=== PATIENT | female | born 1985 | race Caucasian/White ===

== ENCOUNTER 2016-10-06 10:47 | Emergency (ER) | payer BC ==
[2016-10-06 12:04] LABS: Urine Bilirubin Negative (NEGATIVE); Urine Blood 25 /ul (NEGATIVE); Urine Ketone Negative (NEGATIVE); Urine Nitrite Negative (NEGATIVE); Urine Protein Negative (NEGATIVE); Urine Urobilinogen Normal (NORMAL)
[2016-10-06 12:21] LABS: Urine Appearance Clear; Urine Bacteria TRACE; Urine Color Yellow; Urine WBC TRACE /hpf (0-5)
[2016-10-06 12:22] LABS: Hematocrit 41.2 % (37.0-47.0); Hemoglobin 13.7 gm/dL (12.5-16.0); Mean Cell Volume 92.8 fl (78-100); Mean Corpuscular Hemoglobin 30.9 pg (27-31); Mean Corpuscular Hgb Conc 33.3 g/dl (32-36); Mean Platelet Volume 9.8 fl (6.0-9.5); Neutrophil # 5.6 K/mm3 (1.3-6.0); Neutrophil % 61.8 % (42-75.0); Platelet Count 337 K/mm3 (150-450); Red Blood Count 4.44 M/mm3 (4.2-5.4); Red Cell Distribution Width 11.9 % (11.5-14.0); White Blood Count 9.1 K/mm3 (4.0-10.5)
[2016-10-06 12:38] LABS: ALT 31 U/L (19-67); AST 17 U/L (0-48); Albumin * 4.1 gm/dl (3.4-5.0); Alkaline Phosphatase * 84 U/L (50-170); Anion Gap 13.6 mmol/L (6.8-13.8); BUN/Creatinine Ratio 8.5 (9.0-21.6); Bilirubin, Total 0.3 mg/dL (0.0-1.1); Blood Urea Nitrogen 5 mg/dL (3-23); Ca. Corrected For Albumin 9.2 mg/dL (8.4-10.2); Calcium * 9.6 mg/dL (7.9-10.9); Carbon Dioxide 27.3 mmol/L (24-32.6); Chloride 103 mmol/L (97-106); Glucose * 92 mg/dL (70-110); Potassium 3.9 mmol/L (3.4-4.6); Sodium 140 mmol/L (132-142); Total Protein 7.9 gm/dL (6.2-8.2)
[2016-10-06 12:47] VITALS: BP 123/83
--- NOTE | 2016-10-06 13:08 | ERNOTE ---
Abdominal HPI - Narrative Date of Service: 10/06/16 - General Chief Complaint: Abdominal Pain Time Seen by Provider: 10/06/16 11:33 Source: patient, RN notes reviewed Exam Limitations: no limitations - Immun/Allergies/Home Medications Immunizatons: IMMUNIZATION HX Immunizations Up to Date Yes History of Influenza Vaccine Yes Hx Pneumococcal Vaccination No Allergies/Adverse Reactions: Allergies No Known Drug Allergies Allergy (Unverified 11/22/15 14:19) Home Medications: HOME MEDICATIONS Cyclobenzaprine HCl [Flexeril] 10 mg PO TID PRN 10/06/16 [Last Taken Unknown] Levothyroxine Sodium [Synthroid] 75 mcg PO DAILY 10/06/16 [Last Taken Unknown] Methylphenidate HCl [Ritalin LA] 10 mg PO 10/06/16 [Last Taken Unknown] - History of Present Illness Narrative: Josie is a 31-year-old female ambulatory to the emergency department for lower abdominal pain and right-sided low back pain that began last evening. She initially presented to the walk-in clinic where she had a normal urinalysis and a negative urine test, but was sent here for further evaluation. She has not had to take anything for pain today. She denies any other associated symptoms. Date (Duration): 10/05/16 Timing: getting worse Quality: cramping Activities at Onset: none Associated Symptoms: Present: back pain. Absent: headache, chest pain, neck pain, diaphoresis, diarrhea-gross blood, diarrhea-mucous, fatigue, fever/chills , heartburn, nausea, vomiting, loss of appetite, shortness of breath, swelling/ mass in abdomen, syncope, weakness Prior Abdominal Problems: Present: none Prior Treatment: Absent: recently seen, currently on antibiotics Review of Systems - Review of Systems Constitutional: Present: See HPI EYE: Present: no symptoms reported ENT: Present: no symptoms reported Respiratory: Absent: shortness of breath, cough Cardiology: Present: See HPI Gastrointestinal/Abdominal: Present: See HPI Genitourinary: Absent: frequency, dysuria, hematuria Musculoskeletal: Present: See HPI Skin: Present: no symptoms reported Neurological: Present: See HPI Endocrine: Present: no symptoms reported Hematologic/Lymphatic: Present: no symptoms reported Psych: Present: no symptoms reported - Patient's Past Medical History Patient History - Medical: Depression, Hypothyroidism, Obesity, Other - Narcolepsy, Lichen sclerosis Patient History - Cardiac/Respiratory: No pertinent hx Patient History - Cancer: No Hx of Cancer Patient History - Surgical Procedures: T & A LMP (Calendar): 09/19/16 - Social History Living Situations: home Smoking Status: Current every day smoker Cigarettes Packs Per Day: 0.5 Alcohol Use: rarely Drug Use: none Physical Exam - Physical Exam General Appearance: Present: wd/wn, alert, no apparent distress Neck: Present: normal inspection, nontender, supple Respiratory: Present: no respiratory distress, normal breath sounds, no accessory muscle use, lungs clear Cardiovascular/Chest: Present: regular rate, rhythm, no murmur Gastrointestinal/Abdominal: Present: normal bowel sounds, nondistended, soft, no organomegaly, tenderness - Lower abdomen. Absent: rebound, McBurney sign, mass Back Exam: Present: no CVA tenderness, no vertebral tenderness, other - mild tenderness in right lateral lumbar region Neurological Exam: Present: alert, oriented, normal mood/affect Skin Exam: Present: normal color, warm/dry ED Progress - Results and Orders Patient's Lab Results:: I have reviewed the patient's lab results. - Vital Signs Patient's Vital Signs:: I have reviewed the patient's vital signs. Vital Signs: Vital Signs 10/06/16 10/06/16 10:59 12:46 Temperature 36.3 C L Pulse Rate 77 74 Respiratory 18 14 Rate Blood Pressure 122/92 123/83 O2 Sat by Pulse 99 Oximetry - X-Ray X-Ray #1 X-Ray: abdomen Interpretation: Reviewed by me X-ray Comments: TWO VIEW ABDOMEN / ABDOMINAL SERIES COMPARISON: None Supine and erect AP projections of the abdomen and pelvis were obtained. There are small amounts of gas identified within the bowel. I do not see evidence for gaseous dilatation of the bowel, air-fluid levels , or free air. There is a small to moderate amount of stool within the right colon and transverse colon. The visualized lung bases appear clear. I am not convinced of radiodensities overlying the kidneys. IMPRESSION: 1. NONSPECIFIC BOWEL GAS PATTERN Electronically signed by Jorge Harrison M.D.. - Progress/Reassessment Chief Complaint: Abdominal Pain Progress:: Unchanged Progress Note-Subjective: 10/06/16 13:06 Small amount of blood present on UA - discussed possibility of ureteral colic but as patient has not required any medication for pain and does not appear overly uncomfortable, the likelihood of her having a large obstructing stone is minimal so will defer CT scan for now. Abdominal xrays ordered. Plan - Plan Plan: Reviewed xray results with patient - discussed pain is likely d/t retained stool in the ascending colon. Discussed f/u for further eval if pain does not resolve with treatment of constipation. Departure - Departure Clinical Impression: Abdominal pain in female, Constipation, acute Disposition: Home self-care Condition: Good Instructions: Constipation, Adult, [id number], Form - Excuse from Work, School, or Physical Activity Additional Instructions: Repeat Milk of magnesia if no improvement by this time tomorrow Increase fluid intake Return for worsening symptoms Referrals: Yin Bobo, OIL PROGRAM COMPLIANCE SPECIALIST [Primary Care Provider] -
[2016-10-06] MEDS ORDERED: MAGNESIUM HYDROXIDE 30 ML UDC PO ONE (13:58)
== END 2016-10-06 14:19 | disposition home or self-care (01) ==
LOC: ER 10:47
DX: K59.00 Constipation, unspecified (principal); F17.210 Nicotine dependence, cigarettes, uncomplicated; E03.9 Hypothyroidism, unspecified

== ENCOUNTER 2017-07-20 00:09 | Inpatient (IN) | payer BC, OTHER ==
[~2017-07-20 00:09] MED LIST: BUTORPHANOL TARTRATE 2 MG/ML VIAL IV PRN; RINGER'S SOLUTION,LACTATED 1,000 ML IV PRN
[2017-07-20] MEDS: RINGER'S SOLUTION,LACTATED 1,000 ML IV PRN ×2 (00:59→10:41)
[2017-07-20] MEDS ORDERED: OXYTOCIN/DEXTROSE 5%-WATER 30 UNITS/500 ML BAG IV ONE ×2 (01:00→15:02)
[2017-07-20] MEDS ORDERED: INSULIN REGULAR HUMAN REC 100 UNITS in NORMAL SALINE 100 ML IV PRN (01:00)
[2017-07-20] MEDS ORDERED: LIDOCAINE HCL 50 ML VIAL PERI PRN (01:00)
[2017-07-20] MEDS ORDERED: RINGER'S SOLUTION,LACTATED 1,000 ML IV ONE (01:00)
[2017-07-20] MEDS ORDERED: ONDANSETRON HCL/PF 2 MG/ML VIAL IV PRN ×2 (01:00→10:24)
[2017-07-20] MEDS ORDERED: PENICILLIN G POTASSIUM 5 MILLIONUNT in DEXTROSE 5 % IN WATER 100 ML IV ONE ×2 (01:00)
[2017-07-20] MEDS: OXYTOCIN/DEXTROSE 5%-WATER 30 UNITS/500 ML BAG IV ONE ×2 (02:34→06:33)
[2017-07-20] MEDS: PENICILLIN G POTASSIUM 2.5 MILLIONUNT in DEXTROSE 5 % IN WATER 100 ML IV SCH ×6 (06:29→13:26)
[2017-07-20] MEDS ORDERED: BUPIVACAINE HCL/0.9 % NACL/PF 250 ML EP PRN (10:24)
[2017-07-20] MEDS ORDERED: NALOXONE HCL 1 MG/1 ML SYRG IV PRN (10:24)
[2017-07-20] MEDS ORDERED: BUPIVACAINE HCL/PF 30 ML VIAL EP SCH (10:30)
--- NOTE | 2017-07-20 11:02 | OR ---
Anesthesia Procedure Note - Anesthesia Procedure Note Date of Service: 07/20/17 Narrative: Vital Signs - Last Taken Temp 36.8 C 07/20/17 10:32 Pulse 84 07/20/17 10:32 Resp 18 07/20/17 10:32 BP 143/87 07/20/17 10:32 Pulse Ox 99 07/20/17 10:32 07/20/17 11:02 ANESTHESIA PROCEDURE NOTE Date of Procedure: 07/20/2017. Time of procedure: 1035. Performed by: Pernell Martinez CRNA Business Process Lead: None. Preprocedure diagnosis: Active labor. Post procedure diagnosis: Same. Procedure: Insertion of labor epidural. Indications: The patient is a 32 -year-old female in active labor requesting labor epidural for pain management. Findings: See below. Details of the procedure: The patient was placed in a sitting position. DuraPrep as well as Betadine swabs X3 was applied to the patient's back. Patient was then draped in a sterile fashion. Lidocaine 1% was infiltrated to the skin and subcutaneous tissues at the level of the L3-4 interspace. The epidural space was identified using a 18-gauge Tuohy needle with loss-of- resistance technique. Epidural catheter was inserted to a depth of 12 centimeters at skin. Negative test dose was elicited using 3 mL of 1.5% preservative-free lidocaine plus epinephrine 1 200,000. The epidural catheter was then taped and secured in place. A loading dose of 8 mL of 0.25% preservative-free bupivacaine was administered to the epidural catheter after negative aspiration for blood and CSF. EBL: Minimal. Fluids: N/A. Specimen: N/A. Post procedure condition: The patient tolerated the procedure well. No complications were noted. Thank you for this consultation. Pernell Martinez CRNA
--- NOTE | 2017-07-20 11:58 | PN ---
Progess Note - Interim Narrative: 07/20/17 9:00 Pt starting to feel her contractions. FHTs: reassuring SVE: 4-5/70/-3, AROM-minimal clear fluid [place]: q3 min BS: 93 A/P: Continue IOL with pitocin GBS neg Anticipate
[2017-07-20] MEDS ORDERED: GLYCERIN/WITCH HAZEL LEAF 40 APPL BOX TP PRN (15:02)
[2017-07-20] MEDS ORDERED: SENNOSIDES 8.6 MG TABLET PO PRN (15:02)
[2017-07-20] MEDS ORDERED: HYDROCORTISONE 30 APPL TUBE TP PRN (15:02)
[2017-07-20] MEDS ORDERED: BISACODYL 10 MG SUPP.RECT RC PRN (15:02)
[2017-07-20] MEDS ORDERED: BENZOCAINE/MENTHOL 81 SPRAY CAN TP PRN (15:02)
--- NOTE | 2017-07-20 15:06 | OR ---
Operative Report - Dictated Report Narrative: Spontaneous Vaginal Delivery Viable female with APGARS of 8 at 1 minute and 9 at 5 minutes. She delivered at 1446. Presentation was [place]. The anterior and posterior shoulder delivered without difficulty followed by the remainder of the baby. A cord was wrapped around her ankle. The baby was placed on the maternal abdomen and dried and stimulated. The cord was clamped and cut after approximately 60 seconds. Weight: 8 pounds 1.6 ounces or 3676 g Placenta was delivered spontaneously and intact. Bilateral periclitoral stretch abrasions and first-degree midline vaginal laceration was hemostatic without repair. Estimated blood loss: 100 ml Mother and baby tolerated delivery well. History for Definition: * The number of deliveries resulting in a live the patient experienced prior to current hospitalization * The previous delivery of live twins or any live multiple gestation is considered one live event. *If primagravida or nulliparous is documented select zero for the number of previous live births. Live Events: 2
[2017-07-20] MEDS: DOCUSATE SODIUM 100 MG CAPSULE PO SCH (22:47)
[2017-07-21] MEDS: oxyCODONE HCL/ACETAMINOPHEN 1 TAB TABLET PO PRN ×3 (01:28→17:52)
[2017-07-21] MEDS: IBUPROFEN 800 MG TABLET PO PRN ×3 (01:28→17:52)
[2017-07-21] MEDS: DOCUSATE SODIUM 100 MG CAPSULE PO SCH ×2 (08:12→21:24)
--- NOTE | 2017-07-21 11:48 | PN ---
Progess Note - Interim Narrative: 07/21/17 11:47 progress note Subjective: The patient is doing well. She is ambulating, voiding, tolerating by mouth. She has minimal pain and moderate lochia. Objective: General: No acute distress Abdomen: Soft, nontender, fundus is firm just below the umbilicus Extremities: minimal edema, nontender to palpation Assessment and plan: day 1 Feeding: Bottle Pain: Controlled with by mouth medication Gestational diabetes: Plan to check fasting and one-hour postprandials Routine care.
[2017-07-22] MEDS: oxyCODONE HCL/ACETAMINOPHEN 1 TAB TABLET PO PRN ×4 (00:15→15:11)
[2017-07-22] MEDS: IBUPROFEN 800 MG TABLET PO PRN ×2 (05:06→11:07)
[2017-07-22 08:32] VITALS: BP 131/69
--- NOTE | 2017-07-22 09:49 | PN ---
Progess Note - Interim Narrative: 07/22/17 09:49 progress note Subjective: The patient is doing well. She is ambulating, voiding, tolerating by mouth. She has minimal pain and moderate lochia. Objective: General: No acute distress Abdomen: Soft, nontender, fundus is firm just below the umbilicus Extremities: minimal edema, nontender to palpation Assessment and plan: day 2 Feeding: Bottle Pain: Controlled with by mouth medication Gestational diabetes: fasting and one-hour postprandial WNL Routine care.
[2017-07-22] MEDS ORDERED: MEDROXYPROGESTERONE ACET 150 MG/ML SYRG IM ONE (10:30)
[2017-07-22] MEDS: DOCUSATE SODIUM 100 MG CAPSULE PO SCH (10:41)
== END 2017-07-22 15:20 | disposition home or self-care (01) | DRG 775 ==
LOC: MS 00:09 → OB 00:09
PROVIDERS: ADMIT Obstetrics & Gynecology Gynecologic Oncology; ATTEND Obstetrics & Gynecology Gynecologic Oncology
PROC: 10E0XZZ Delivery of Products of Conception, External Approach (ICD-10-PCS; principal; 2017-07-20)
PROC: 3E0P3VZ Introduction of Hormone into Female Reproductive, Percutaneous Approach (ICD-10-PCS; 2017-07-20)
PROC: 10907ZC Drainage of Amniotic Fluid, Therapeutic from Products of Conception, Via Natural or Artificial Opening (ICD-10-PCS; 2017-07-20)
PROC: 4A1HXCZ Monitoring of Products of Conception, Cardiac Rate, External Approach (ICD-10-PCS; 2017-07-20)
PROC: 00HU33Z Insertion of Infusion Device into Spinal Canal, Percutaneous Approach (ICD-10-PCS; 2017-07-20)
DX: O69.81X0 Labor and delivery complicated by cord around neck, without compression, not applicable or unspecified (principal); O24.425 Gestational diabetes mellitus in childbirth, controlled by oral hypoglycemic drugs; O70.0 First degree perineal laceration during delivery; E03.9 Hypothyroidism, unspecified; Z3A.39 39 weeks gestation of pregnancy; Z37.0 Single live birth

== ENCOUNTER 2017-07-25 13:49 | Emergency (ER) | payer BC, OTHER ==
[2017-07-25] MEDS ORDERED: PHENYLEPHRINE HCL RC ONE ×2 (14:11→14:14)
--- NOTE | 2017-07-25 14:23 | ERNOTE ---
Medical Problem HPI - Narrative Date of Service: 07/25/17 - General Chief Complaint: General Assessment Time Seen by Provider: 07/25/17 14:04 Source: patient Exam Limitations: no limitations - Immun/Allergies/Home Medications Immunizations: IMMUNIZATION HX Immunizations Up to Date Yes History of Influenza Vaccine Yes Hx Pneumococcal Vaccination No Allergies/Adverse Reactions: Allergies No Known Drug Allergies Allergy (Verified 07/25/17 13:56) Home Medications: HOME MEDICATIONS Cyclobenzaprine HCl [Flexeril] 10 mg PO TID PRN 10/06/16 [Last Taken Unknown] Levothyroxine Sodium [Synthroid] 75 mcg PO DAILY 10/06/16 [Last Taken Unknown] Ibuprofen [Motrin] 800 mg PO Q6H PRN tablet 07/22/17 [Last Taken Unknown] Docusate Sodium [Colace] 100 mg PO DAILY #30 cap 07/25/17 [Last Taken Unknown] HYDROcodone/ACETAMINOPHEN [Hydrocodon-Acetaminophen 5-325] 1 each PO TID PRN # 20 tablet 07/25/17 [Last Taken Unknown] - History of Present History Narrative: 32-year-old female presents to the emergency room for which she states her hemorrhoids. Patient states she had a vaginal delivery last Sunday or hemorrhoids have flared up over the last 24 hours. Patient states she has tried tucks pads and sitz baths but has not gotten relief. Timing: constant Severity: moderate Modifying Factors - (Worsens): Present: movement Review of Systems - Review of Systems Constitutional: Present: See HPI EYE: Present: no symptoms reported ENT: Present: no symptoms reported Respiratory: Present: no symptoms reported Cardiology: Present: no symptoms reported Gastrointestinal/Abdominal: Present: See HPI Genitourinary: Present: no symptoms reported Musculoskeletal: Present: no symptoms reported Skin: Present: no symptoms reported Neurological: Present: no symptoms reported Endocrine: Present: no symptoms reported Hematologic/Lymphatic: Present: no symptoms reported Psych: Present: no symptoms reported All Other Systems: All systems neg except as marked - Narrative Narrative: Had a vaginal delivery on Sunday of a full-term baby. - Patient's Past Medical History Patient History - Medical: Depression, Hypothyroidism, Obesity, Other Patient History - Cardiac/Respiratory: No pertinent hx Patient History - Cancer: No Hx of Cancer Patient History - Surgical Procedures: T & A Patient History - Other: None - Social History Living Situations: home Psych History: Hx of Depression - Immunizations Immunizations Up to Date: Yes Hx Pneumococcal Vaccination: No History of Influenza Vaccine: Yes Physical Exam - Physical Exam Narrative: Patient has an engorged hemorrhoid at the 2 o'clock position. It is soft and reducible. second hemorrhoid 9 o'clock position is darker in color and firmer. Area is very tender. General Appearance: Present: wd/wn, alert, no apparent distress Head Exam: Present: normal inspection, no evidence of injury Eye Exam: Normal inspection: bilateral Ears, Nose, Throat: Present: normal ENT inspection, normal pharynx Neck: Present: normal inspection, nontender Respiratory: Present: no respiratory distress, normal breath sounds, no accessory muscle use, chest nontender, lungs clear Cardiovascular/Chest: Present: regular rate, rhythm, no murmur, normal peripheral pulses Gastrointestinal/Abdominal: Present: normal bowel sounds, nontender, nondistended, no organomegaly Rectal Exam: Present: tenderness, hemorrhoids Back Exam: Present: normal inspection, normal range of motion, no CVA tenderness , no vertebral tenderness Extremity Exam: Present: normal inspection, non-tender, normal range of motion, no edema Neurological Exam: Present: alert, oriented, normal mood/affect, no motor/ sensory deficits Skin Exam: Present: normal color, warm/dry, other - see narrative Lymphatic Exam: Present: no adenopathy ED Progress - Vital Signs Patient's Vital Signs:: I have reviewed the patient's vital signs. Vital Signs: Vital Signs 07/25/17 13:51 Temperature 36.0 C L Pulse Rate 88 Respiratory 12 Rate Blood Pressure 143/85 O2 Sat by Pulse 98 Oximetry - Progress/Reassessment Chief Complaint: General Assessment Progress:: Improved Procedures Lateral Perineum Anesthesia: 1% Lidocaine I & D Prep: betadine prep Blade Size: 16G needle Findings and Actions: other - moderate clot removed Complications: Pt marshal procedure well Comments:: procedure performed by ED attending Mary Castle Plan - Plan Plan: Patient should continue her sitz baths tux pads and stool softeners. She'll follow up with her primary care SURVEY INTERVIEWER in the next 2-3 days. Departure Clinical Impression: External hemorrhoid, thrombosed - Departure Disposition: Home Follow Up Needed Condition: Stable Instructions: Surgical Procedures for Hemorrhoids, Care After, Disposable Sitz Bath Additional Instructions: Continue any previous home medications as directed. Follow up with her primary care provider in the next 2-3 days. If you have a sitz bath after every bowel movement. Keep area as clean as possible. Follow discharge instructions given to you regarding the procedure you have in the emergency room. Take pain medication as needed. This pain medication may cause constipation therefore you have been prescribed Colace which is a stool softener. Take the stool softener while you're taking the pain medication to prevent constipation. Return to the emergency room if pain returns or you have increase in bleeding in that area or you're unable to have a bowel movement. Referrals: Yin Bobo, ONLINE COMMUNICATIONS MANAGER [Primary Care Provider] - Prescriptions: Docusate Sodium [Colace] 100 mg PO DAILY #30 cap HYDROcodone/ACETAMINOPHEN [Hydrocodon-Acetaminophen 5-325] 1 each PO TID PRN # 20 tablet PRN Reason: Pain
[2017-07-25] MEDS ORDERED: LIDOCAINE HCL/EPINEPHRINE 30 ML VIAL IJ ONE (15:20)
[2017-07-25 15:35] VITALS: BP 140/45
== END 2017-07-25 15:33 | disposition home or self-care (01) ==
LOC: ER 13:49
PROC: 06BY0ZC Excision of Hemorrhoidal Plexus, Open Approach (ICD-10-PCS; principal; 2017-07-25)
DX: K64.5 Perianal venous thrombosis (principal); E03.9 Hypothyroidism, unspecified

== ENCOUNTER 2017-07-25 20:58 | Emergency (ER) | payer BC, OTHER ==
[2017-07-25] MEDS ORDERED: HYDROmorphone HCL 1 MG/ML DISP.SYRIN IM ONE (21:18)
[2017-07-25] MEDS ORDERED: HYDROmorphone HCL 1 MG/ML DISP.SYRIN ONE (21:23)
--- NOTE | 2017-07-25 21:33 | ERNOTE ---
Medical Problem HPI - Narrative Date of Service: 07/25/17 - General Chief Complaint: General Assessment Time Seen by Provider: 07/25/17 21:09 Source: patient - Immun/Allergies/Home Medications Immunizations: IMMUNIZATION HX Immunizations Up to Date Yes History of Influenza Vaccine Yes Hx Pneumococcal Vaccination No Allergies/Adverse Reactions: Allergies No Known Drug Allergies Allergy (Verified 07/25/17 13:56) Home Medications: HOME MEDICATIONS Cyclobenzaprine HCl [Flexeril] 10 mg PO TID PRN 10/06/16 [Last Taken Unknown] Levothyroxine Sodium [Synthroid] 75 mcg PO DAILY 10/06/16 [Last Taken Unknown] Ibuprofen [Motrin] 800 mg PO Q6H PRN tablet 07/22/17 [Last Taken Unknown] Docusate Sodium [Colace] 100 mg PO DAILY #30 cap 07/25/17 [Last Taken Unknown] HYDROcodone/ACETAMINOPHEN [Hydrocodon-Acetaminophen 5-325] 1 each PO TID PRN # 20 tablet 07/25/17 [Last Taken Unknown] Polyethylene Glycol 3350 [Miralax] 17 gm PO DAILY #510 gm 07/25/17 [Last Taken Unknown] - History of Present History Narrative: patient present to ER for increase pain from her hemorrhoids. patient was seen in the ER earlier today for an incarcerated hemorrhoid that was lanced and released. patient now has increased pain to the area and she states that they have gotten bigger. Date (Duration): 07/25/17 Timing: constant, getting worse Severity: moderate Review of Systems - Review of Systems Constitutional: Present: See HPI EYE: Present: no symptoms reported ENT: Present: no symptoms reported Respiratory: Present: no symptoms reported Cardiology: Present: no symptoms reported Gastrointestinal/Abdominal: Present: See HPI Genitourinary: Present: no symptoms reported Musculoskeletal: Present: no symptoms reported Skin: Present: See HPI Neurological: Present: no symptoms reported Endocrine: Present: no symptoms reported Hematologic/Lymphatic: Present: no symptoms reported Psych: Present: no symptoms reported All Other Systems: All systems neg except as marked - Patient's Past Medical History Patient History - Medical: Hypothyroidism, Obesity, Other Patient History - Cardiac/Respiratory: No pertinent hx Patient History - Cancer: No Hx of Cancer Patient History - Surgical Procedures: T & A, Other Patient History - Other: None LMP (females 10-50): now - Social History Living Situations: spouse Psych History: Hx of Depression Smoking Status: Never smoker Have you smoked in the past 12 months: No Do you dip or chew tobacco: No Alcohol Use: none Drug Use: none - Immunizations Immunizations Up to Date: Yes Hx Pneumococcal Vaccination: No History of Influenza Vaccine: Yes Physical Exam - Physical Exam Narrative: patient had 2 bilateral hemorrhoids that are occluding her rectum. both of thees hemorrhoids were lanced earlier today and they hare now both very inflamed and firm to touch . lauren area is tender as well. General Appearance: Present: wd/wn, alert Head Exam: Present: normal inspection, no evidence of injury Eye Exam: Normal inspection: bilateral Ears, Nose, Throat: Present: normal ENT inspection, normal pharynx Neck: Present: normal inspection, nontender Respiratory: Present: no respiratory distress, normal breath sounds, no accessory muscle use, chest nontender, lungs clear Cardiovascular/Chest: Present: regular rate, rhythm, no murmur, normal peripheral pulses Gastrointestinal/Abdominal: Present: normal bowel sounds, nontender, soft, no organomegaly Rectal Exam: Present: tenderness, hemorrhoids Back Exam: Present: normal inspection, normal range of motion, no CVA tenderness , no vertebral tenderness Extremity Exam: Present: normal inspection, non-tender, normal range of motion, no edema Neurological Exam: Present: alert, oriented, normal mood/affect, no motor/ sensory deficits Skin Exam: Present: normal color, warm/dry Lymphatic Exam: Present: no adenopathy ED Progress - Vital Signs Patient's Vital Signs:: I have reviewed the patient's vital signs. Vital Signs: Vital Signs 07/25/17 21:01 Temperature 37.0 C Pulse Rate 78 Respiratory 14 Rate Blood Pressure 156/111 O2 Sat by Pulse 100 Oximetry - Progress/Reassessment Chief Complaint: General Assessment Progress:: Improved Plan - Plan Plan: Dr Ace informed of patients condition and he is to see the patient. Procedure I&D of hemorrhoids performed by Dr Ace. Departure Clinical Impression: External hemorrhoid, thrombosed - Departure Disposition: Home self-care Condition: Stable Instructions: Surgical Procedures for Hemorrhoids, Care After, Disposable Sitz Bath, How to Take a Sitz Bath, Surgical Procedures for Hemorrhoids Additional Instructions: Continue any previous home medications as prescribed. Follow up with her primary care provider in the next 2-3 days. Return to the emergency room if he are unable to have a bowel movement or if pain returns. Remember to have a sitz bath after every bowel movement. Referrals: Yin Bobo, PA [Primary Care Provider] - Prescriptions: Polyethylene Glycol 3350 [Miralax] 17 gm PO DAILY #510 gm
[2017-07-25] MEDS ORDERED: MORPHINE SULFATE 2 MG/ML DISP.SYRIN IV ONE ×2 (21:52→22:09)
[2017-07-25] MEDS ORDERED: MORPHINE SULFATE 2 MG/ML DISP.SYRIN ONE ×2 (21:56→22:09)
[2017-07-25 23:02] VITALS: BP 143/65
--- NOTE | 2017-07-26 07:57 | OR ---
Operative Report - Dictated Report Narrative: OPERATIVE REPORT DATE OF OPERATION: 07/25/2017 PREOPERATIVE DIAGNOSIS: Thrombosed external hemorrhoids in the right posterior quadrant and left posterior quadrant POSTOPERATIVE DIAGNOSIS: Thrombosed external hemorrhoids OPERATION: Incision and drainage of 2 thrombosed external hemorrhoids SURGEON: Kinza Ace MD ANESTHESIA: 0.5 Marcaine injected local INDICATIONS FOR PROCEDURE: The patient is a 32-year-old female who presented to the emergency room with a one-day history of painful hemorrhoids. She underwent incision and drainage of 2 areas earlier this afternoon however returns with increased pain and swelling. I was asked to see the patient. FINDINGS: Additional new clot in the previously drained hemorrhoids. NARRATIVE OF PROCEDURE: The patient was identified preoperatively and a timeout taken. With the patient in the right lateral position the perineum was prepped with Betadine and draped sterilely. 0.5% Marcaine was used to infiltrate the area around the hemorrhoidal groups in the right posterior and left posterior quadrants. After successful anesthesia the area was carefully inspected. There was additional clot in both hemorrhoids. Using a 15 blade the hemorrhoids were opened further and as much clot as visible extracted with a hemostat. The wounds were then closed with single sutures of 2-0 chromic. The area appeared hemostatic. The patient tolerated the procedure well without complication there was no measurable blood loss. She will be discharged home with instructions on hemorrhoid care and numbers to call with problems. Review to electronically signed
== END 2017-07-25 23:01 | disposition home or self-care (01) ==
LOC: ER 20:58
PROC: 069Y0ZZ Drainage of Lower Vein, Open Approach (ICD-10-PCS; principal; 2017-07-25)
DX: K64.5 Perianal venous thrombosis (principal); E03.9 Hypothyroidism, unspecified

== ENCOUNTER 2017-07-26 02:16 | Observation (INO) | payer BC, OTHER ==
--- NOTE | 2017-07-26 02:44 | ERNOTE ---
Medical Problem HPI - General Chief Complaint: General Assessment Time Seen by Provider: 07/26/17 02:34 Source: patient Exam Limitations: no limitations - Immun/Allergies/Home Medications Immunizations: IMMUNIZATION HX Immunizations Up to Date Yes History of Influenza Vaccine No Hx Pneumococcal Vaccination No Allergies/Adverse Reactions: Allergies No Known Drug Allergies Allergy (Verified 07/26/17 02:28) Home Medications: HOME MEDICATIONS Cyclobenzaprine HCl [Flexeril] 10 mg PO TID PRN 10/06/16 [Last Taken Unknown] Levothyroxine Sodium [Synthroid] 75 mcg PO DAILY 10/06/16 [Last Taken Unknown] Docusate Sodium [Colace] 100 mg PO DAILY #30 cap 07/25/17 [Last Taken Unknown] HYDROcodone/ACETAMINOPHEN [Hydrocodon-Acetaminophen 5-325] 1 each PO TID PRN # 20 tablet 07/25/17 [Last Taken Unknown] Polyethylene Glycol 3350 [Miralax] 17 gm PO DAILY #510 gm 07/25/17 [Last Taken Unknown] - History of Present History Narrative: Pt returns to the ED after being here twice last night. She was seen by Dr. Castle initially and had 2 thrombosed hemorrhoids evacuated. She then returned and was seen by Andrew BANDA and she consulted Dr. Ace. He saw her and anesthetized the area with marcaine. She states she went home and was beginning to have pain so she took a pain pill. She slept for approx 40 minutes and the pain continued to increase. She eventually returned to the ED approx 4 hours after being discharged. Timing: getting worse Severity: severe Review of Systems - Review of Systems Constitutional: Absent: recent illness Gastrointestinal/Abdominal: Present: See HPI, constipation Genitourinary: Absent: frequency, pain, dysuria - Patient's Past Medical History Patient History - Medical: Hypothyroidism, Obesity, Other Patient History - Cardiac/Respiratory: No pertinent hx Patient History - Cancer: No Hx of Cancer Patient History - Surgical Procedures: T & A, Other Patient History - Other: None - Family History Mother Family History - Cardiac/Respiratory: Hypertension - Social History Living Situations: home Psych History: Hx of Depression Alcohol Use: none Drug Use: none - Immunizations Immunizations Up to Date: Yes Hx Pneumococcal Vaccination: No History of Influenza Vaccine: No Physical Exam - Physical Exam General Appearance: Present: wd/wn, alert, moderate distress Head Exam: Present: normal inspection, no evidence of injury Neck: Present: normal inspection, nontender Respiratory: Present: no respiratory distress, no accessory muscle use Back Exam: Present: normal inspection, no vertebral tenderness Extremity Exam: Present: normal range of motion, no edema Neurological Exam: Present: alert, oriented, no motor/sensory deficits Skin Exam: Present: normal color, warm/dry ED Progress - Vital Signs Vital Signs: Vital Signs 07/26/17 02:17 Temperature 36.8 C Pulse Rate 90 Respiratory 20 Rate Blood Pressure 179/92 O2 Sat by Pulse 96 Oximetry - Progress/Reassessment Chief Complaint: General Assessment Progress Note-Subjective: 07/26/17 02:[address] Ace about the patient. He will see the patient in the ED 07/26/17 03:20 Dr. Ace decided to admit the patient. He completed the orders and and H and P. See his document for details Departure Clinical Impression: External hemorrhoid, thrombosed - Departure Disposition: [facility] Condition: Fair
[2017-07-26] MEDS ORDERED: MORPHINE SULFATE 2 MG/ML DISP.SYRIN ONE (02:52)
[2017-07-26] MEDS ORDERED: MORPHINE SULFATE 2 MG/ML DISP.SYRIN IV ONE (02:54)
[2017-07-26] MEDS ORDERED: ONDANSETRON HCL/PF 2 MG/ML VIAL IV PRN (03:33)
--- NOTE | 2017-07-26 03:53 | HP ---
Chief Complaint - Chief Complaint Date of Service: 07/26/17 Time of Service: 03:44 Chief Complaint: hemorrhoid pain History of Present Illness: She had I&D of thrombosed external hemorrhoids this afternoon in ER, returned later with extended thrombosis. These were I&D'd with Marcaine as she had eaten. Sent home on Hydrocodone but returns with increased pain now that local has worn off. - Patient's Past Medical History Patient History - Medical: Hypothyroidism, Obesity, Other - had vaginal delivery 07/21/17, gestational diabetes, Induced with 12 hr labor Patient History - Cardiac/Respiratory: No pertinent hx Patient History - Cancer: No Hx of Cancer Patient History - Surgical Procedures: T & A, Other - t&a Patient History - Other: None LMP (females 10-50): other - lochia - Family History Family History:: no familial bleeding tendencies - Social History Living Situations: home Psych History: Hx of Depression Alcohol Use: none Drug Use: none - Immunizations Immunizations Up to Date: Yes Hx Pneumococcal Vaccination: No History of Influenza Vaccine: No Review Of Systems (GEN) - Review of Systems Generalized/Overall Review: Present: No Symptoms Reported EENTM: Present: No Symptoms Reported Respiratory: Present: No Symptoms Reported Cardiac: Present: No Symptoms Reported Abdominal: Present: Constipation Genitourinary: Present: No Symptoms Reported Musculoskeletal: Present: No Symptoms Reported Neurological: Present: No Symptoms Reported Skin: Present: No Symptoms Reported Endocrine: Present: No Symptoms Reported Immunizations: IMMUNIZATION HX Immunizations Up to Date Yes History of Influenza Vaccine No Hx Pneumococcal Vaccination No Allergies/Adverse Reactions: Allergies Allergy/AdvReac Type Severity Reaction Status Date / Time No Known Drug Allergies Allergy Verified 07/26/17 02:28 Home Medications: HOME MEDICATIONS Cyclobenzaprine HCl [Flexeril] 10 mg PO TID PRN 10/06/16 [Last Taken Unknown] Levothyroxine Sodium [Synthroid] 75 mcg PO DAILY 10/06/16 [Last Taken Unknown] Ibuprofen [Motrin] 800 mg PO Q6H PRN tablet 07/22/17 [Last Taken Unknown] Docusate Sodium [Colace] 100 mg PO DAILY #30 cap 07/25/17 [Last Taken Unknown] HYDROcodone/ACETAMINOPHEN [Hydrocodon-Acetaminophen 5-325] 1 each PO TID PRN # 20 tablet 07/25/17 [Last Taken Unknown] Polyethylene Glycol 3350 [Miralax] 17 gm PO DAILY #510 gm 07/25/17 [Last Taken Unknown] Exam - Exam Vital Signs: Vital Signs - Last Taken Temp 36.8 C 07/26/17 02:17 Pulse 90 07/26/17 02:17 Resp 20 07/26/17 02:17 BP 179/92 07/26/17 02:17 Pulse Ox 96 07/26/17 02:17 Constitutional: Present: Alert, Oriented x3, Cooperative, Well nourished, Moderate distress ENT Exam: Present: normal ENT inspection, other - flushed Eye Exam: bilateral eye: normal inspection Neck: Present: full range of motion, normal inspection Back Exam: Present: normal inspection Breasts: Present: Exam deferred Respiratory: Present: lungs clear Cardiovascular/Chest: Present: regular rate, rhythm Abdomen: Present: soft, nontender, obese /Rectal: Present: Other - No new thrombosed areas to external inspection, prior sutures intact Extremity: Present: normal range of motion, normal inspection Skin Exam: Present: normal color, warm/dry Neurologic: Present: website developer II-XII nml as tested, other - twitches Appearance: Present: appropriate appearance, other - anxious Eye contact: Present: cooperative, good eye contact Thoughts: Present: normal thought pattern Assessment/Plan - Assessment/Plan (1) External hemorrhoid, thrombosed Assessment: Will place in observation for IV pain control/transition to po med. Will make NPO 6AM if possible anesthesia needed Problem: Acute
[2017-07-26] MEDS ORDERED: diphenhydrAMINE HCL 50 MG/ML VIAL IV PRN (03:54)
[2017-07-26] MEDS ORDERED: NALOXONE HCL 1 MG/1 ML SYRG IV PRN (03:54)
[2017-07-26] MEDS ORDERED: HYDROmorphone HCL IN 0.9% NACL 50 ML CARTRIDGE IV PRN (03:54)
[2017-07-26] MEDS: RINGER'S SOLUTION,LACTATED 1,000 ML IV PRN ×2 (04:18→16:02)
[2017-07-26] MEDS ORDERED: PANTOPRAZOLE SODIUM 40 MG in NORMAL SALINE 100 ML IV SCH (06:00)
[2017-07-26] MEDS ORDERED: LEVOTHYROXINE SODIUM 75 MCG TABLET PO SCH (07:00)
[2017-07-26] MEDS ORDERED: DOCUSATE SODIUM 100 MG CAPSULE PO SCH (09:00)
[2017-07-26] MEDS ORDERED: POLYETHYLENE GLYCOL 3350 119 GM BTL PO SCH (09:00)
[2017-07-26] MEDS: KETOROLAC TROMETHAMINE 30 MG/ML VIAL IV PRN ×2 (09:48→16:04)
--- NOTE | 2017-07-26 11:40 | PN ---
Dictated Progress Note - Date and Time Seen: Date: 07/26/17 Time: 11:39 - Progress Note Narrative: Vital Signs - Last Taken Temp 36.7 C 07/26/17 11:37 Pulse 80 07/26/17 11:37 Resp 18 07/26/17 11:37 BP 148/88 07/26/17 11:37 Pulse Ox 98 07/26/17 11:37 Pain is much better 2/10 after Toradol. Will continue. Advance diet as OR probably not needed.
[2017-07-26 14:57] VITALS: BP 141/76
--- NOTE | 2017-07-26 18:10 | DS ---
(1) External hemorrhoid, thrombosed Problem: Acute Description of Stay: She originally had I&D of 2 thrombosed external hemorrhoids in the ER in the afternoon. She returned later in the evening with increased pain and additional swelling/thrombosis. More extensive I&D performed and again went home. Returned with uncontrolled pain despite po meds. Placed in Observation for pain control and serial exams to r/o further extension requiring OR intervention. Her VS remained normal. Serial exams demonstrated stable anal exam with no extension. Early ambulation and SCD's. Pain initially managed with SHED BOSS and improved markedly over the course of the day. Tolerated regular diet. Desired discharge. Procedures Performed: none Discharge Disposition: Home self care Disposition: Home self-care Condition: Good Discharge Activity: Activity as tolerated Discharge Diet: General/regular food Problem Oriented Discharge Instructions to Patient/Family: Hemorrhoids, Easy-to -Read Additional Patient Instructions (free text): To follow up with Dr Ace 7-10 days call [phone] to schedule apt or with questions Prescriptions (Any new or edited meds): Ketorolac Tromethamine [Toradol] 10 mg PO Q6H PRN #20 tab PRN Reason: Pain Complete Home Medications List: Complete Home Medication List: Cyclobenzaprine HCl [Flexeril] 10 mg PO TID PRN 10/06/16 Levothyroxine Sodium [Synthroid] 75 mcg PO DAILY 10/06/16 Docusate Sodium [Colace] 100 mg PO DAILY #30 cap 07/25/17 HYDROcodone/ACETAMINOPHEN [Hydrocodon-Acetaminophen 5-325] 1 each PO TID PRN # 20 tablet 07/25/17 Polyethylene Glycol 3350 [Miralax] 17 gm PO DAILY #510 gm 07/25/17 Ketorolac Tromethamine [Toradol] 10 mg PO Q6H PRN #20 tab 07/26/17
== END 2017-07-26 18:38 | disposition home or self-care (01) ==
LOC: ER 02:16 → MS 03:43
PROVIDERS: ADMIT Surgery; ATTEND Surgery
DX: O87.2 Hemorrhoids in the puerperium (principal); G89.18 Other acute postprocedural pain; E66.9 Obesity, unspecified; Z68.33 Body mass index [BMI] 33.0-33.9, adult; E03.9 Hypothyroidism, unspecified
CPT/HCPCS: 96374; 96375; 96376; 99284; G0378

== ENCOUNTER 2017-07-28 05:22 | Emergency (ER) | payer BC, OTHER ==
--- NOTE | 2017-07-28 05:47 | ERNOTE ---
Medical Problem HPI - Narrative Date of Service: 07/28/17 - General Chief Complaint: General Assessment Time Seen by Provider: 07/28/17 05:39 Source: patient Exam Limitations: no limitations - Immun/Allergies/Home Medications Immunizations: IMMUNIZATION HX Immunizations Up to Date Yes History of Influenza Vaccine No Hx Pneumococcal Vaccination No Allergies/Adverse Reactions: Allergies No Known Drug Allergies Allergy (Verified 07/28/17 05:33) Home Medications: HOME MEDICATIONS Cyclobenzaprine HCl [Flexeril] 10 mg PO TID PRN 10/06/16 [Last Taken Unknown] Levothyroxine Sodium [Synthroid] 75 mcg PO DAILY 10/06/16 [Last Taken Unknown] Docusate Sodium [Colace] 100 mg PO DAILY #30 cap 07/25/17 [Last Taken Unknown] HYDROcodone/ACETAMINOPHEN [Hydrocodon-Acetaminophen 5-325] 1 each PO TID PRN # 20 tablet 07/25/17 [Last Taken Unknown] Polyethylene Glycol 3350 [Miralax] 17 gm PO DAILY #510 gm 07/25/17 [Last Taken Unknown] Ketorolac Tromethamine [Toradol] 10 mg PO Q6H PRN #20 tab 07/26/17 [Last Taken Unknown] - History of Present History Narrative: Patient presents to the emergency room after she had removal and ligation of her hemorrhoidal veins by our surgeon. Patient is here because the area is very tender in the anus area denies any fevers or chills. Review of Systems - Review of Systems Constitutional: Present: no symptoms reported EYE: Present: no symptoms reported ENT: Present: no symptoms reported Respiratory: Present: no symptoms reported Cardiology: Present: no symptoms reported Gastrointestinal/Abdominal: Present: See HPI Genitourinary: Present: no symptoms reported Musculoskeletal: Present: no symptoms reported Skin: Present: no symptoms reported - Patient's Past Medical History Patient History - Medical: Hypothyroidism, Obesity, Other Patient History - Cardiac/Respiratory: No pertinent hx Patient History - Cancer: No Hx of Cancer Patient History - Surgical Procedures: T & A, Other Patient History - Other: None - Family History Mother Family History - Cardiac/Respiratory: Hypertension - Social History Living Situations: home Psych History: Hx of Depression Smoking Status: Former smoker Alcohol Use: none Drug Use: none - Immunizations Immunizations Up to Date: Yes Hx Pneumococcal Vaccination: No History of Influenza Vaccine: No Physical Exam - Physical Exam General Appearance: Present: wd/wn, alert, mild distress, other - patient is in pain Head Exam: Present: normal inspection Gastrointestinal/Abdominal: Present: other - visual exam of the anus reveals that there are no engorged or thrombosed hemorrhoids. Portion of the hemorrhoids that was out extruding and thrombosed have been removed the area looks clean slightly red but overall within normal limits for hemorrhoidectomy patients. She is very tender in the area of the anal opening ED Progress - Vital Signs Patient's Vital Signs:: I have reviewed the patient's vital signs. Vital Signs: Vital Signs 07/28/17 05:26 Temperature 37.2 C Pulse Rate 87 Respiratory 18 Rate Blood Pressure 134/53 O2 Sat by Pulse 98 Oximetry - Progress/Reassessment Chief Complaint: General Assessment Plan - Plan Plan: This patient has postoperative pain after her hemorrhoidectomy we will give her Zofran 4 mg IV Dilaudid [address] an ice pack to her hemorrhoids and suggest that she keep it that way for pain control. Additionally she was advised to continue taking her ibuprofen 800 mg. Departure Clinical Impression: Hemorrhoids Qualifiers: Hemorrhoid type: unspecified Qualified Code(s): K64.9 - Unspecified hemorrhoids - Departure Disposition: Home self-care Condition: Good Instructions: Hemorrhoids, [id number] Referrals: Yin Bobo, [employer] [Primary Care Provider] -
[2017-07-28] MEDS ORDERED: ONDANSETRON HCL/PF 2 MG/ML VIAL IV ONE (05:49)
[2017-07-28] MEDS ORDERED: HYDROmorphone HCL 2 MG/ML VIAL IV ONE (05:49)
[2017-07-28] MEDS ORDERED: HYDROmorphone HCL 2 MG/ML VIAL ONE (05:50)
[2017-07-28] MEDS ORDERED: ONDANSETRON HCL/PF 2 MG/ML VIAL ONE (05:51)
[2017-07-28 06:18] VITALS: BP 133/76
== END 2017-07-28 06:14 | disposition home or self-care (01) ==
LOC: ER 05:22
DX: K64.9 Unspecified hemorrhoids (principal); Z98.890 Other specified postprocedural states; E03.9 Hypothyroidism, unspecified
CPT/HCPCS: 96374; 99283; J2405